=== PATIENT | male | born 1995 | race Caucasian/White ===

== ENCOUNTER → 2017-05-31 | Outpatient (CLI) | payer OTHER | LOC: HEDF 18:07 | DX: R41.82 Altered mental status, unspecified (principal); I62.00 Nontraumatic subdural hemorrhage, unspecified; I60.9 Nontraumatic subarachnoid hemorrhage, unspecified; R40.2430 Glasgow coma scale score 3-8, unspecified time; R22.0 Localized swelling, mass and lump, head | CPT/HCPCS: A0431; A0436 ==

== ENCOUNTER 2017-09-05 14:09 | Emergency (ER) | payer OTHER ==
[~2017-09-05] VITALS: Ht 177.8 cm; Wt 65.0 kg
[2017-09-05 14:15] VITALS: BP 109/66; PULSE 99; RESP 16; TEMP 98.8; O2SAT 98
--- NOTE | 2017-09-05 14:50 | PD ---
HPI Chief Complaint: Back/ Neck Pain or Injury Time Seen by Provider: 14:33 Travel History International Travel<30 days: No Contact w/Intl Traveler<30days: No Traveled to known affect area: No History of Present Illness HPI This is a 22-year-old male that was evaluated at [facility] and transferred here for continued care and evaluation. refer to . Dr. Larkin usually evaluated the patient and per his HPI, "22- year-old poor historian male presented to the ER for evaluation of lower back pain. Patient fell 3 months ago as he was mopping the floor and hit his lower back, he did not go to the ER or a doctor at that point and bought "donut pillow " and sat on it trying to ease the pain. For the last 3 months has been getting pain on and off, pain is 5/10, only when he sits down or stands up, no pain when he lays down, He did not try anything [id number] for the pain and decided to come to the ER today because the pain is not going away. There is no new symptoms or events that exacerbated the pain, no fever or chills. Patient has no weakness or sensory loss but reports "urinary dribbling" every time he leans forward. He has full control of his bladder and bowel but he only gets dribbling if he leans forward. He says he never had this problem before and this started after the fall. When I asked him why he did not go to see a physician he said he did not think it is problem and he thought it was going to go away on its own. The urinary dribbling is not getting worse and has been the same throughout the last 3 months. Also reports constipation since the fall !" [facility] Social History Tobacco Use: No Allergies-Medications (Allergen,Severity, Reaction): Coded Allergies: No Known Allergies (Unverified , 09/05/17) Reported Meds & Prescriptions Reported Meds & Active Scripts Active No Active Prescriptions or Reported Medications Review of Systems Except as stated in HPI: all other systems reviewed are Neg Physical Exam Narrative GENERAL: Well-nourished, well-developed male patient, in no acute distress SKIN: Warm and dry. HEAD: Atraumatic. Normocephalic. EYES: Pupils equal and round. No scleral icterus. No injection or drainage. ENT: Mucosa pink and moist. Airway patent. NECK: Trachea midline. CARDIOVASCULAR: Regular rate. RESPIRATORY: No accessory muscle use. GASTROINTESTINAL: Flat. MUSCULOSKELETAL: Ambulatory at the bedside with a normal gait. No obvious deformities. No clubbing. No cyanosis. No edema. NEUROLOGICAL: Awake and alert. Oriented 3. No obvious cranial nerve deficits. Motor grossly within normal limits. Normal speech. PSYCHIATRIC: Appropriate mood and affect; insight and judgment normal. Data Data Last Documented VS Vital Signs Date Time Temp Pulse Resp B/P (MAP) Pulse Ox O2 Delivery O2 Flow Rate FiO2 09/05/17 14:15 98.8 99 16 109/66 (80) 98 Orders Orders Mri L Spine W&W/O Contrast (09/05/17 ) Mri T Spine W & W/O Contrast (09/05/17 ) Complete Blood Count With Diff (09/05/17 14:34) Comprehensive Metabolic Panel (09/05/17 14:34) Iv Access Insert/Monitor (09/05/17 14:34) Drug Screen, Random Urine (09/05/17 14:34) Urinalysis - C+S If Indicated (09/05/17 15:14) Labs Laboratory Tests Test 09/05/17 15:00 09/05/17 15:10 White Blood Count 6.8 TH/MM3 Red Blood Count 4.33 MIL/MM3 Hemoglobin 14.6 GM/DL Hematocrit 41.7 % Mean Corpuscular Volume 96.3 FL Mean Corpuscular Hemoglobin 33.7 PG Mean Corpuscular Hemoglobin Concent 35.0 % Red Cell Distribution Width 12.7 % Platelet Count 237 TH/MM3 Mean Platelet Volume 7.9 FL Neutrophils (%) (Auto) 47.9 % Lymphocytes (%) (Auto) 36.3 % Monocytes (%) (Auto) 8.3 % Eosinophils (%) (Auto) 6.5 % Basophils (%) (Auto) 1.0 % Neutrophils # (Auto) 3.3 TH/MM3 Lymphocytes # (Auto) 2.5 TH/MM3 Monocytes # (Auto) 0.6 TH/MM3 Eosinophils # (Auto) 0.4 TH/MM3 Basophils # (Auto) 0.1 TH/MM3 CBC Comment DIFF FINAL Differential Comment Blood Urea Nitrogen 4 MG/DL Creatinine 0.83 MG/DL Random Glucose 83 MG/DL Total Protein 7.7 GM/DL Albumin 4.3 GM/DL Calcium Level 9.4 MG/DL Alkaline Phosphatase 82 U/L Aspartate Amino Transf (AST/SGOT) 16 U/L Alanine Aminotransferase (ALT/SGPT) 21 U/L Total Bilirubin 0.7 MG/DL Sodium Level 142 MEQ/L Potassium Level 3.7 MEQ/L Chloride Level 106 MEQ/L Carbon Dioxide Level 28.6 MEQ/L Anion Gap 7 MEQ/L Estimat Glomerular Filtration Rate 118 ML/MIN Urine Color YELLOW Urine Turbidity CLOUDY Urine pH 8.0 Urine Specific [place] 1.005 Urine Protein NEG mg/dL Urine Glucose (UA) NEG mg/dL Urine Ketones NEG mg/dL Urine Occult Blood NEG Urine Nitrite NEG Urine Bilirubin NEG Urine Urobilinogen LESS THAN 2 mg/dL Urine Leukocyte Esterase NEG Urine RBC 1 /hpf Urine WBC 4 /hpf Urine Amorphous Sediment RARE Urine Bacteria RARE /hpf Microscopic Urinalysis Comment CULT NOT INDICATED Urine Opiates Screen NEG Urine Barbiturates Screen NEG Urine Amphetamines Screen NEG Urine Benzodiazepines Screen NEG Urine Cocaine Screen NEG Urine Cannabinoids Screen POS [facility] Medical Decision Making Medical Screen Exam Complete: Yes Emergency Medical Condition: Yes Medical Record Reviewed: Yes Differential Diagnosis Cauda equina syndrome, cord compression, urinary incontinence, urinary dribbling , stress incontinence, UTI Narrative Course Patient presents as a transfer from [facility] for an MRI of his lumbar spine. Initial history and physical was completed by Dr. Larkin; please refer to visit number [id number] for initial assessment and evaluation. Dr. Toribio had received report from Dr. Larkin. I spoke with Dr. Toribio and she recommended CBC, CMP, MRI of the lumbar and thoracic spine with and without contrast, drug screen. Orders entered. I offered the patient pain medication and he declined. 1507: CBC unremarkable. 1552: CMP unremarkable. 1618: Urinalysis without signs of infection. Positive for cannabinoids. 1640: Patient removed his own IV and left AGAINST MEDICAL ADVICE. AMA: The risks of leaving against medical advice without further evaluation treatment were discussed with the patient. These risks include cardiac dysfunction, cardiac dysrhythmia, possible heart attack, possible stroke or . The patient indicated understanding of these risks and appeared to have the capacity to make this decision. Diagnosis Primary Impression: Left against medical advice Scripts No Active Prescriptions or Reported Meds Disposition: 07 AGAINST MEDICAL ADVICE Mayra Larson Sep 05, 2017 14:50
[2017-09-05 15:06] LABS: AUTOMATED NEUTROPHIL # 3.3 TH/MM3 (1.8-7.7); BASOPHIL # 0.1 TH/MM3 (0-0.2); EOSINOPHIL # 0.4 TH/MM3 (0-0.4); EOSINOPHIL % 6.5 % (0.0-4.0); HEMATOCRIT 41.7 % (39.0-51.0); HEMOGLOBIN 14.6 GM/DL (13.0-17.0); LYMPH % 36.3 % (9.0-44.0); LYMPHOCYTE # 2.5 TH/MM3 (1.0-4.8); MEAN CELL VOLUME 96.3 FL (80.0-100.0); MEAN CORPUSCULAR HEMOGLOBIN 33.7 PG (27.0-34.0); MEAN PLATELET VOLUME 7.9 FL (7.0-11.0); MONO % 8.3 % (0.0-8.0); MONOCYTE # 0.6 TH/MM3 (0-0.9); NEUT % 47.9 % (16.0-70.0); PLATELET COUNT 237 TH/MM3 (150-450); RED BLOOD COUNT 4.33 MIL/MM3 (4.50-5.90); RED CELL DISTRIBUTION WIDTH 12.7 % (11.6-17.2); WHITE BLOOD COUNT 6.8 TH/MM3 (4.0-11.0)
[2017-09-05 15:20] LABS: ALBUMIN 4.3 GM/DL (3.4-5.0); ALT (GPT) 21 U/L (9-52); AST (GOT) 16 U/L (15-39); BICARBONATE 28.6 MEQ/L (21.0-32.0); BLOOD UREA NITROGEN 4 MG/DL (7-18); CALCIUM 9.4 MG/DL (8.5-10.1); CHLORIDE 106 MEQ/L (98-107); CREATININE 0.83 MG/DL (0.60-1.30); GLOMERULAR FILTRATION RATE 118 ML/MIN (>89); GLUCOSE,RANDOM 83 MG/DL (74-106); SODIUM (NA) 142 MEQ/L (136-145)
[2017-09-05 15:22] LABS: ALKALINE PHOSPHATASE 82 U/L (45-117); TOTAL BILIRUBIN ADULT 0.7 MG/DL (0.2-1.0); TOTAL PROTEIN 7.7 GM/DL (6.4-8.2)
[2017-09-05 16:13] LABS: AMORPHOUS SEDIMENT, URINE RARE; BACTERIA, URINE RARE /hpf; BILIRUBIN, URINE NEG (NEG); BLOOD, URINE NEG (NEG); GLUCOSE,URINE NEG (NEG); KETONE, URINE NEG (NEG); NITRITE,URINE NEG (NEG); URINE COLOR YELLOW (YELLW/STRAW); URINE LEUKOCYTE ESTERASE NEG (NEG)
== END 2017-09-05 16:55 | disposition left against medical advice (07) ==
LOC: NEPK 14:09
DX: M54.5 Low back pain (principal); K59.00 Constipation, unspecified; Z53.20 Procedure and treatment not carried out because of patient's decision for unspecified reasons
CPT/HCPCS: 72131; 80053; 80307; 81001; 85025; 99283